=== PATIENT | female | born 1960 | race Asian ===

== ENCOUNTER 2021-01-23 10:18 | Outpatient (CLI) | payer OTHER ==
--- NOTE | 2021-01-23 13:36 | Cat Scan Report ---
CTA NECK WITH CONTRAST 01/23/2021 INDICATION / CLINICAL INFORMATION: MAIN. Bilateral carotid artery stenosis. COMPARISON: None. TECHNIQUE: Routine CTA of the neck is performed. 3-D/MIP reformats were postprocessed. Percentage st enosis is determined by direct quantitative measurements of diseased internal carotid artery diameter compared with normal distal internal carotid artery reference segments or by criteria similar to EUGENIA CET where applicable. All CT scans at this location are performed using CT dose reduction for ALARA b y means of automated exposure control. CONTRAST: 100 ml of Omnipaque 350 FINDINGS: Carotid bifurcations: On the right, some atherosclerotic plaque is present associated with mild steno sis. On the left, atherosclerotic plaque is present associated with prominent focal stenosis in the r madeline of 70-80% at the bifurcation. Carotid arteries: No significant abnormality. Cervical vertebral arteries: No significant abnormality. Aortic arch: No significant abnormality. None. IMPRESSION: High-grade stenosis at the origin of the left internal carotid artery. Signer Name: Lion Espinosa MD Signed: 01/23/2021 1:25 PM Workstation Name: [email or web address]
== END 2021-01-23 10:19 | disposition home or self-care (01) ==
LOC: CT 10:18
PROVIDERS: ATTEND Surgery Vascular Surgery
DX: I65.22 Occlusion and stenosis of left carotid artery (principal)
CPT/HCPCS: 36415; 70498; 82565; 84520; Q9967

== ENCOUNTER 2021-02-20 06:22 | Inpatient (IN) | payer OTHER ==
[~2021-02-20 06:22] MED LIST: ACETAMINOPHEN 500 MG TAB PO SCH; LACTATED RINGERS 1,000 ML IV SCH; MIDAZOLAM 2 MG/2 ML INJ IV NR; ceFAZolin/Water 2 GM/20 ML 2 GM/20 ML SYRINGE IV NR
[2021-02-20] MEDS ORDERED: BACTERIOSTATIC SODIUM CHLORIDE 0.9% 30 ML VIAL INFILTRATI ONE (06:35)
[2021-02-20 07:21] LABS: Calcium 9.7 mg/dL (8.4-10.2)
[2021-02-20] MEDS ORDERED: ONDANSETRON 4 MG/2 ML INJ IV PRN (09:01)
--- NOTE | 2021-02-20 09:01 | Anesthesia Day of Surgery ---
Anesthesia Day of Surgery - Day of Surgery Patient Examined: Yes Patient H&P Reviewed: Yes Patient is NPO: Yes Beta Blockers: Yes Cardiac Clearance: Yes
--- NOTE | 2021-02-20 09:01 | Event Note ---
Date: 02/20/21 (Anesthesia Preop Consult) Patient w/ PMH CAD s/p CABG 2011 and PCI 2013, HTN , NIDDM presenting for L CEA. Surgery previously scheduled for 1 wk ago but wass rescheduled for today. Previously evaluated in preassessment; no change in health since that evaluation. Hyperkalemia noted on PAT labs, which is improved today. ASA 3. Plan GETA. Pre-induction arterial line placed in preop holding area. Plan ICU admission postop. See anesthesia consult note for additional details.
[2021-02-20] MEDS ORDERED: propofoL 200 MG/20 ML VIAL IV ONE (09:25)
[2021-02-20] MEDS ORDERED: ROCURONIUM 50 MG/5 ML INJ IV ONE ×2 (09:25→10:59)
[2021-02-20] MEDS ORDERED: LIDOCAINE MPF (2%) 20 MG/1 ML VIAL 5 ML ONE (09:25)
[2021-02-20] MEDS ORDERED: HYDROmorphone 1 MG/1 ML INJ ONE (09:25)
[2021-02-20] MEDS ORDERED: HEPARIN 10,000 UNITS/10 ML VIAL ONE (09:39)
[2021-02-20] MEDS ORDERED: rifAMPin 600 MG VIAL ONE (09:39)
[2021-02-20] MEDS ORDERED: SODIUM CHLORIDE 0.9% 50 ML ONE (09:40)
[2021-02-20] MEDS ORDERED: GELATIN SPONGE SIZE 100 TP ONE ×2 (09:40→12:33)
[2021-02-20] MEDS ORDERED: THROMBIN (RECOMBINANT) 5,000 UNIT VIAL TP ONE ×2 (09:40→12:33)
[2021-02-20] MEDS ORDERED: SODIUM CHLORIDE 0.9% 500 ML 500 ML ONE (09:40)
[2021-02-20] MEDS ORDERED: LIDOCAINE-MPF (1%) 10 MG/1 ML VIAL 5 ML ONE (09:41)
[2021-02-20] MEDS ORDERED: BUPIVACAINE/PF (0.5%) 5 MG/1 ML 10 ML VIAL INFILTRATI ONE ×3 (09:41→11:08)
[2021-02-20] MEDS ORDERED: PHENYLEPHRINE/NS 1,000 MCG/10 ML SYRINGE (OR USE) IV ONE ×2 (10:49→12:56)
[2021-02-20] MEDS ORDERED: SODIUM CHLORIDE 0.9% 500 ML IVPB IRRIGATION ONE (11:09)
[2021-02-20] MEDS ORDERED: HEPARIN 10,000 UNITS/10 ML VIAL IR ONE (11:09)
[2021-02-20] MEDS ORDERED: SODIUM CHLORIDE 0.9% IRR 1,500 ML BOTTLE IR ONE (11:10)
[2021-02-20] MEDS ORDERED: rifAMPin 600 MG VIAL IV ONE (11:47)
[2021-02-20] MEDS ORDERED: SODIUM CHLORIDE 0.9% 50 ML IVPB IV ONE (11:48)
[2021-02-20] MEDS ORDERED: GLYCOPYRROLATE 0.4 MG/2 ML INJ ONE (12:46)
[2021-02-20] MEDS ORDERED: NEOSTIGMINE 10MG/10 ML INJ MDV ONE (12:46)
[2021-02-20] MEDS ORDERED: SODIUM CHLORIDE 0.9% 1000 ML 1,000 ML ONE (12:57)
[2021-02-20] MEDS ORDERED: ONDANSETRON 4 MG/2 ML INJ ONE (13:17)
--- NOTE | 2021-02-20 13:18 | Operative Report ---
Operative Report Operative Report: Date of procedure: 02/20/2021 Pre-operative diagnosis: Left Carotid Artery Stenosis Post-operative diagnosis: Left Carotid Artery Stenosis Procedure(s): 1. Left Carotid Endarterectomy With Patch Angioplasty 2. Intraoperative Completion Duplex Surgeon: Alvaro Santos MD Children Counselor: None Anesthesia: General Endotracheal Anesthesia EBL: 75 mL Findings: Multiphasic waveforms with peak systolic velocity of 60 cm/s without evidence of intimal flaps at the completion of the case. Specimen: Left Carotid Plaque Counts: Correct Complications: None Condition: Stable Indication: The patient is a 60-year-old female who was found to have significant carotid artery stenosis on a carotid duplex at an outside facility. She had a CTA of her neck that confirmed approximately 85 to 90% stenosis of her left internal carotid artery. She had a work-up that demonstrated she was an adequate candidate for a carotid endarterectomy. She was given the risk, benefits, and alternative procedures and consented to the procedure. Description of Procedure: The patient was brought to the operating room and laid in supine position. After general endotracheal anesthesia was achieved the patient was placed in beachchair position with her head elevated and turned slightly to the right. Th e patient's neck and chest were prepped and draped in normal fashion. An oblique incision was then created along the anterior border of the sternocleidomastoid. The incision was then carried down to the facial vein using sharp dissection. The facial vein was then dissected out circumferentially, suture ligated and divided. The dissection was then carried down to the common carotid using sharp dissection. The common carotid artery was dissected out circumferentially taking care to avoid the vagus nerve which was identified and avoided. The artery was then controlled with a large vessel loop. The dissection was carried up along the external carotid and the superficial thyroid artery was identified dissected out circumferentially and controlled with a 2-0 silk. The external carotid was dissected out and controlled a small vessel loop. I then dissected out the internal carotid artery well above the plaque which was identified by a change in hue of the artery from yellow to blue and palpation of the artery over a right angle. I controlled the internal carotid artery with a small vessel and at this point the patient was systemically heparinized with heparin IV. Once the heparin had circulated for 3 minute I clamped the internal carotid artery followed by the common carotid and then the external Carotid artery. I created an arteriotomy extending from the common carotid into the internal carotid, well above the plaque, using an 11 blade and Mayo scissors. I then flashed the internal carotid artery to check for adequate backbleeding. Once ensure there was adequate backbleeding reclamped the artery and used a Carmel blade to dissect the plaque away from the artery. I used a right angle to continue the dissection of this plane from lateral to medial and then divided the plaque using Mayo scissors. I then trimmed the plaque proximally using Mayo and then teased the plaque away from the distal endpoint insuring that there were no areas of dissection or intimal flaps. These plaque forceps to remove all loose debris and then flushed the artery with heparinized saline. I then closed the artery using the Dacron patch and two 6-0 Prolenes in running fashion. Prior to completing the closure I flushed all arteries to remove all loose debris and then flushed the artery with heparinized saline. I then completed the closure in an flashed the internal carotid, reclamped and then removed the clamp from the common carotid followed by the external carotid and allowed any loose debris to flush into the external carotid. I then removed the clamp from the internal carotid artery. Hemostasis was achieved with repair sutures with 6-0 Prolene in interrupted fashion and a combination of direct pressure with Quick Clot. Once hemostasis was achieved I performed an intraoperative duplex that demonstrated no evidence of dissection and normalization of internal carotid velocity. I then anesthetized the wound with 0.5% Marcaine and closed in 2 layers using a 3- 0 Vicryl in running in the deep dermal layer and a 4-0 Monocryl in running in the subcuticular layer and dressed it with the Dermabond. The patient tolerated the procedure well all sponge needle and instrument counts were correct the patient was taken to the recovery area in stable condition.
[2021-02-20] MEDS: HYDROmorphone 1 MG/1 ML INJ IV PRN ×2 (13:45→13:55)
[2021-02-20] MEDS ORDERED: DOPamine/D5W 800 MG/250 ML 800 MG/250 ML BAG IV SCH (14:00)
[2021-02-20] MEDS ORDERED: NITROPRUSSIDE 50 MG in DEXTROSE 5% IN WATER 248 ML IV SCH (14:00)
--- NOTE | 2021-02-20 14:10 | Vascular Lab Report ---
VL carotid duplex LT INDICATION / CLINICAL INFORMATION: LT.CAROTID STENOSIS TECHNIQUE: 13 intraoperative sonographic images were obtained during endarterectomy FINDINGS: Intraoperative sonographic images to evaluate for residual stenosis after left carotid nephrectomy. N o residual stenosis is visualized. Peak systolic velocity is 65 cm/s which is within normal range. See operative/procedure note by performing physician. Signer Name: Jb Arizmendi MD Signed: 02/20/2021 2:05 PM Workstation Name: [email or web address]
[2021-02-20] MEDS: HYDROcodone/ACETAMINOPHEN 5-325 MG TAB PO PRN ×2 (16:27→22:06)
--- NOTE | 2021-02-20 16:37 | Post Anesthesia Evaluation ---
- Post Anesthesia Evaluation Patient Participated: Yes Airway Patent: Yes Stable Respiratory Function: Yes Nausea/Vomiting: No Temp > 96.8F: Yes Pain Manageable: Yes Adequeate Hydration: Yes Anesthesia Complications: No Other Comments: No neuro deficits. OK for transfer to ICU pending bed availability.
[2021-02-20] MEDS: INSULIN LISPRO 100 UNIT/ML SUB-Q SCH ×2 (16:40→22:08)
[2021-02-20] MEDS: metFORMIN 500 MG TAB PO SCH (17:08)
[2021-02-20] MEDS ORDERED: ONDANSETRON 4 MG/2 ML INJ IV ONE ×2 (17:31→18:31)
[2021-02-20] MEDS ORDERED: ceFAZolin/NS 1 GM/50 ML 1 GM/50 ML BAG IV SCH (18:30)
[2021-02-20] MEDS ORDERED: NON-FORMULARY EACH (Metformin Hcl [Metformin] 1,000 MG Tablet) PO SCH (22:00)
[2021-02-20] MEDS: METOPROLOL TARTRATE 50 MG TAB PO SCH (22:06)
[2021-02-20] MEDS: DOCUSATE SODIUM 100 MG CAP PO SCH (22:06)
[2021-02-20] MEDS: PRAVASTATIN 40 MG TAB PO SCH (22:06)
[2021-02-20] MEDS: SODIUM CHLORIDE 0.9% 1000 ML 1,000 ML IV SCH (22:08)
[2021-02-21 05:21] LABS: Basophils # (Auto) 0.2 K/mm3 (0.0-0.1); Basophils % (Auto) 1.1 % (0.0-1.8); Eosinophils % (Auto) 0.2 % (0.0-4.3); Hematocrit 29.8 % (30.3-42.9); Hemoglobin 9.7 gm/dl (10.1-14.3); Lymphocytes # (Auto) 2.4 K/mm3 (1.2-5.4); Lymphocytes % (Auto) 16.2 % (13.4-35.0); Mean Corpuscular HGB Conc 33 % (30-34); Mean Corpuscular Volume 85 fl (79-97); Monocytes # (Auto) 0.9 K/mm3 (0.0-0.8); Monocytes % (Auto) 6.1 % (0.0-7.3); Platelet Count 364 K/mm3 (140-440); Red Blood Count 3.52 M/mm3 (3.65-5.03)
[2021-02-21] MEDS: SODIUM CHLORIDE 0.9% 1000 ML 1,000 ML IV SCH (08:53)
[2021-02-21] MEDS: INSULIN LISPRO 100 UNIT/ML SUB-Q SCH ×4 (08:58→22:05)
[2021-02-21] MEDS: LISINOPRIL 20 MG TAB PO SCH (09:01)
[2021-02-21] MEDS: DOCUSATE SODIUM 100 MG CAP PO SCH ×2 (09:01→22:05)
[2021-02-21] MEDS: HYDROcodone/ACETAMINOPHEN 5-325 MG TAB PO PRN ×2 (09:01→18:13)
[2021-02-21] MEDS: allopurinoL 100 MG TAB PO SCH (09:01)
[2021-02-21] MEDS: ASPIRIN 81 MG TAB CHEW PO SCH (09:01)
[2021-02-21] MEDS: metFORMIN 500 MG TAB PO SCH ×2 (09:02→18:05)
[2021-02-21] MEDS: CLOPIDOGREL 75 MG TAB PO SCH (09:02)
[2021-02-21] MEDS: METOPROLOL TARTRATE 50 MG TAB PO SCH ×2 (09:02→22:05)
[2021-02-21] MEDS: amLODIPine 10 MG TAB PO SCH (09:04)
[2021-02-21] MEDS ORDERED: NON-FORMULARY EACH (Pravastatin Sodium [Pravastatin] 10 MG Tablet) PO SCH (10:00)
[2021-02-21] MEDS ORDERED: CLOPIDOGREL 75 MG TAB PO SCH (10:00)
[2021-02-21] MEDS: TRIAMTER/HCTZ 37.5-25 MG TAB PO SCH (10:26)
[2021-02-21] MEDS: EZETIMIBE 10 MG TAB PO SCH (10:26)
--- NOTE | 2021-02-21 11:25 | Progress Note ---
Assessment and Plan Patient will need to get out of bed and ambulate with assistance with either physical therapy or nursing assistance. She will need to be seated for her meals. Okay to transfer the patient to the floor. Would anticipate discharge tomorrow. Subjective Date of service: 02/21/21 Principal diagnosis: Left carotid stenosis Interval history: Patient is postop day 1 status post left carotid endarterectomy. She is doing well following her surgery. No significant bruising at the incision site. The patient is breathing easily. She describes some mild dysphagia with large chunks of meat or bread. Has not yet been out of bed without assistance. Objective - Constitutional Vitals: Vital Signs - 12hr 02/21/21 02/21/21 02/21/21 00:00 01:00 02:00 Temperature 99.3 F Pulse Rate 105 H 101 H 94 H Respiratory 20 17 19 Rate Blood Pressure 168/72 160/62 168/70 O2 Sat by Pulse 94 94 94 Oximetry 02/21/21 02/21/21 02/21/21 03:00 03:14 04:00 Temperature 98.6 F Pulse Rate 84 88 Respiratory 17 17 Rate Blood Pressure 156/60 171/68 O2 Sat by Pulse 93 93 Oximetry 02/21/21 02/21/21 02/21/21 04:17 05:00 06:00 Temperature Pulse Rate 88 84 Respiratory 19 16 Rate Blood Pressure 164/63 161/61 O2 Sat by Pulse 95 93 93 Oximetry 02/21/21 02/21/21 02/21/21 07:00 07:39 08:00 Temperature 98.7 F Pulse Rate 86 92 H Respiratory 17 17 Rate Blood Pressure 162/60 161/61 O2 Sat by Pulse 93 96 Oximetry 02/21/21 02/21/21 02/21/21 08:17 09:00 09:01 Temperature Pulse Rate 88 88 Respiratory 19 Rate Blood Pressure 179/68 179/68 O2 Sat by Pulse 97 94 Oximetry 02/21/21 02/21/21 02/21/21 09:02 09:04 10:00 Temperature Pulse Rate 88 88 84 Respiratory 15 Rate Blood Pressure 179/68 179/68 145/51 O2 Sat by Pulse Oximetry 02/21/21 11:00 Temperature Pulse Rate 79 Respiratory 13 Rate Blood Pressure 144/57 O2 Sat by Pulse 92 Oximetry General appearance: Present: no acute distress - EENT Eyes: EOM intact ENT: hearing intact - Neck Neck: supple - Respiratory Respiratory effort: normal - Cardiovascular Rhythm: regular Extremity abnormal: edema - Gastrointestinal General gastrointestinal: Present: deferred Rectal Exam: deferred - Genitourinary Female genitourinary: deferred - Neurologic Neurologic: no focal deficits, moves all extremities - Psychiatric Psychiatric: appropriate mood/affect, cooperative - Labs CBC & Chem 7: 02/21/21 04:57 02/20/21 06:54 Labs: Abnormal lab results 02/20/21 02/20/21 02/20/21 Range/Units 13:09 16:24 21:17 WBC (4.5-11.0) K/mm3 RBC (3.65-5.03) M/mm3 Hgb (10.1-14.3) gm/dl Hct (30.3-42.9) % Steele # (Auto) (0.0-0.8) K/mm3 Baso # (Auto) (0.0-0.1) K/mm3 Seg Neutrophils % (40.0-70.0) % Seg Neutrophils # (1.8-7.7) K/mm3 POC Glucose 191 H 173 H 226 H (70-105) mg/dL 02/21/21 02/21/21 Range/Units 04:57 07:59 WBC 14.9 H (4.5-11.0) K/mm3 RBC 3.52 L (3.65-5.03) M/mm3 Hgb 9.7 L (10.1-14.3) gm/dl Hct 29.8 L (30.3-42.9) % Steele # (Auto) 0.9 H (0.0-0.8) K/mm3 Baso # (Auto) 0.2 H (0.0-0.1) K/mm3 Seg Neutrophils % 76.4 H (40.0-70.0) % Seg Neutrophils # 11.4 H (1.8-7.7) K/mm3 POC Glucose 165 H (70-105) mg/dL Medications & Allergies - Medications Allergies/Adverse Reactions: Allergies adhesive Allergy (Verified 02/05/21 09:50) Rash latex Allergy (Verified 02/05/21 09:50) Rash Home Medications: Home Medications Medication Instructions Recorded Confirmed Last Taken Type Metoprolol [Lopressor] 100 mg PO BID 03/08/14 02/18/21 02/20/21 05:10 History Pravastatin Sodium [Pravastatin] 40 mg PO DAILY 03/08/14 02/18/21 02/19/21 Hi story lisinopriL [Zestril] 40 mg PO QDAY 03/08/14 02/18/21 02/19/21 History Aspirin [Aspirin BABY CHEW TAB] 81 mg PO QDAY 01/24/15 02/20/21 02/06/21 History Clopidogrel [Plavix] 75 mg PO QDAY 01/24/15 02/18/21 02/19/21 History Ezetimibe [Zetia] 10 mg PO QDAY 02/05/21 02/18/21 02/19/21 History Metformin HCl [metFORMIN] 1,000 mg PO BID 02/05/21 02/20/21 02/19/21 History Triamterene/Hydrochlorothiazid 75 mg PO DAILY 02/05/21 02/18/21 02/19/21 History [Triamterene-Hctz 75-50 mg Tab] allopurinoL [Zyloprim] 100 mg PO QDAY 02/05/21 02/18/21 02/19/21 History amLODIPine [Norvasc] 10 mg PO DAILY 02/05/21 02/18/21 02/20/21 05:10 History Active Medications: Generic Name Dose Route Start Last Admin Trade Name Freq PRN Reason Stop Dose Admin Hydrocodone Bitart/Acetaminophen 1 each 02/20/21 14:30 02/21/21 09:01 Hydrocodone/Acetaminophen 5-325 Mg Tab PO 1 each Q6H PRN Administration Pain, Moderate (4-6) Allopurinol 100 mg 02/21/21 10:00 02/21/21 09:01 Allopurinol 100 Mg Tab PO 100 mg QDAY ALEJANDRO Administration Amlodipine Besylate 10 mg 02/21/21 10:00 02/21/21 09:04 Amlodipine 10 Mg Tab PO 10 mg DAILY ALEJANDRO Administration Aspirin 81 mg 02/21/21 10:00 02/21/21 09:01 Aspirin 81 Mg Tab Chew PO 81 mg QDAY ALEJANDRO Administration Clopidogrel Bisulfate 75 mg 02/21/21 10:00 02/21/21 09:02 Clopidogrel 75 Mg Tab PO 75 mg QDAY ALEJANDRO Administration Docusate Sodium 100 mg 02/20/21 22:00 02/21/21 09:01 Docusate Sodium 100 Mg Cap PO 100 mg BID ALEJANDRO Administration Ezetimibe 10 mg 02/21/21 10:00 02/21/21 10:26 Ezetimibe 10 Mg Tab PO 10 mg QDAY ALEJANDRO Administration Sodium Chloride 1,000 mls @ 100 mls/hr 02/20/21 14:00 02/21/21 08:53 Nacl 0.9% 1000 Ml IV 100 mls/hr DIRECT ALEJANDRO Administration Dopamine HCl/Dextrose 800 mg in 250 mls @ 3.402 mls/hr 02/20/21 14:00 Intropin Drip 800 Mg/D5w 250 Ml IV TITR ALEJANDRO Protocol 2 MCG/KG/MIN Sodium Nitroprusside 50 mg/ 250 mls @ 6.804 mls/hr 02/20/21 14:00 Dextrose IV TITR ALEJANDRO Protocol 0.25 MCG/KG/MIN Insulin Human Lispro 0 unit 02/20/21 16:30 02/21/21 08:58 Insulin Lispro 100 Unit/Ml SUB-Q 2 unit ACHS ALEJANDRO Administration Protocol Lisinopril 40 mg 02/21/21 10:00 02/21/21 09:01 Lisinopril 20 Mg Tab PO 40 mg QDAY ALEJANDRO Administration Metformin HCl 1,000 mg 02/20/21 17:00 02/21/21 09:02 Metformin 500 Mg Tab PO 1,000 mg BIDDIAB ALEJANDRO Administration Metoprolol Tartrate 100 mg 02/20/21 22:00 02/21/21 09:02 Metoprolol Tartrate 50 Mg Tab PO 100 mg BID ALEJANDRO Administration Pravastatin Sodium 40 mg 02/20/21 22:00 02/20/21 22:06 Pravastatin 40 Mg Tab PO 40 mg QHS ALEJANDRO Administration Triamterene/Hydrochlorothiazide 2 each 02/21/21 10:00 02/21/21 10:26 Triamter/Hctz 37.5-25 Mg Tab PO 2 each QAM ALEJANDRO Administration
--- NOTE | 2021-02-21 13:28 | Post Anesthesia Evaluation ---
- Post Anesthesia Evaluation Patient Participated: Yes Airway Patent: Yes Stable Respiratory Function: Yes Nausea/Vomiting: No (had PONV lasting 4-5hrs postop, none since) Temp > 96.8F: No Pain Manageable: Yes Adequeate Hydration: Yes Anesthesia Complications: No Block Receding Appropriately: Not Applicable Patient on Ventilator: No
[2021-02-21] MEDS: PRAVASTATIN 40 MG TAB PO SCH (22:05)
[2021-02-21] MEDS ORDERED: ACETAMINOPHEN 325 MG TAB PO PRN (22:29)
[2021-02-22] MEDS: HYDROcodone/ACETAMINOPHEN 5-325 MG TAB PO PRN ×2 (01:07→06:24)
[2021-02-22] MEDS: ASPIRIN 81 MG TAB CHEW PO SCH (09:13)
[2021-02-22] MEDS: DOCUSATE SODIUM 100 MG CAP PO SCH (09:13)
[2021-02-22] MEDS: CLOPIDOGREL 75 MG TAB PO SCH (09:13)
[2021-02-22] MEDS: metFORMIN 500 MG TAB PO SCH (09:13)
[2021-02-22] MEDS: EZETIMIBE 10 MG TAB PO SCH (09:13)
[2021-02-22] MEDS: allopurinoL 100 MG TAB PO SCH (09:13)
[2021-02-22] MEDS: INSULIN LISPRO 100 UNIT/ML SUB-Q SCH ×2 (09:13→12:16)
[2021-02-22] MEDS: amLODIPine 10 MG TAB PO SCH (09:15)
[2021-02-22] MEDS: METOPROLOL TARTRATE 50 MG TAB PO SCH (09:15)
[2021-02-22] MEDS: LISINOPRIL 20 MG TAB PO SCH (09:15)
[2021-02-22] MEDS: TRIAMTER/HCTZ 37.5-25 MG TAB PO SCH (09:39)
--- NOTE | 2021-02-22 11:10 | Short Stay Summary ---
Short Stay Documentation Date of service: 02/22/21 Narrative H&P: See H&P - History H&P: obtained from office - Allergies and Medications Current Medications: Allergies adhesive Allergy (Verified 02/05/21 09:50) Rash latex Allergy (Verified 02/05/21 09:50) Rash Home Medications Medication Instructions Recorded Confirmed Last Taken Type Metoprolol [Lopressor] 100 mg PO BID 03/08/14 02/18/21 02/20/21 05:10 History Pravastatin Sodium [Pravastatin] 40 mg PO DAILY 03/08/14 02/18/21 02/19/21 History lisinopriL [Zestril] 40 mg PO QDAY 03/08/14 02/18/21 02/19/21 History Aspirin [Aspirin BABY CHEW TAB] 81 mg PO QDAY 01/24/15 02/20/21 02/06/21 History Clopidogrel [Plavix] 75 mg PO QDAY 01/24/15 02/18/21 02/19/21 History Ezetimibe [Zetia] 10 mg PO QDAY 02/05/21 02/18/21 02/19/21 History Metformin HCl [metFORMIN] 1,000 mg PO BID 02/05/21 02/20/21 02/19/21 History Triamterene/Hydrochlorothiazid 75 mg PO DAILY 02/05/21 02/18/21 02/19/21 History [Triamterene-Hctz 75-50 mg Tab] allopurinoL [Zyloprim] 100 mg PO QDAY 02/05/21 02/18/21 02/19/21 History amLODIPine [Norvasc] 10 mg PO DAILY 02/05/21 02/18/21 02/20/21 05:10 History Active Medications Acetaminophen (Acetaminophen 325 Mg Tab) 650 mg PO Q4H PRN PRN Reason: Pain, Mild (1-3) Last Admin: 02/21/21 22:39 Dose: 650 mg Documented by: Hydrocodone Bitart/Acetaminophen (Hydrocodone/Acetaminophen 5-325 Mg Tab) 1 each PO Q6H PRN PRN Reason: Pain, Moderate (4-6) Last Admin: 02/22/21 06:24 Dose: 1 each Documented by: Allopurinol (Allopurinol 100 Mg Tab) 100 mg PO QDAY ALEJANDRO Last Admin: 02/22/21 09:13 Dose: 100 mg Documented by: Amlodipine Besylate (Amlodipine 10 Mg Tab) 10 mg PO DAILY [facility] Last Admin: 02/22/21 09:15 Dose: 10 mg Documented by: Aspirin (Aspirin 81 Mg Tab Chew) 81 mg PO QDAY [facility] Last Admin: 02/22/21 09:13 Dose: 81 mg Documented by: Clopidogrel Bisulfate (Clopidogrel 75 Mg Tab) 75 mg PO QDAY [facility] Last Admin: 02/22/21 09:13 Dose: 75 mg Documented by: Docusate Sodium (Docusate Sodium 100 Mg Cap) 100 mg PO BID [facility] Last Admin: 02/22/21 09:13 Dose: 100 mg Documented by: Ezetimibe (Ezetimibe 10 Mg Tab) 10 mg PO QDAY [facility] Last Admin: 02/22/21 09:13 Dose: 10 mg Documented by: Sodium Chloride (Nacl 0.9% 1000 Ml) 1,000 mls @ 100 mls/hr IV DIRECT [facility] Last Admin: 02/21/21 08:53 Dose: 100 mls/hr Documented by: Insulin Human Lispro (Insulin Lispro 100 Unit/Ml) 0 unit SUB-Q ACHS [facility]; Protocol Last Admin: 02/22/21 09:13 Dose: 3 unit Documented by: Lisinopril (Lisinopril 20 Mg Tab) 40 mg PO QDAY [facility] Last Admin: 02/22/21 09:15 Dose: 40 mg Documented by: Metformin HCl (Metformin 500 Mg Tab) 1,000 mg PO BIDDIAB [facility] Last Admin: 02/22/21 09:13 Dose: 1,000 mg Documented by: Metoprolol Tartrate (Metoprolol Tartrate 50 Mg Tab) 100 mg PO BID [facility] Last Admin: 02/22/21 09:15 Dose: 100 mg Documented by: Pravastatin Sodium (Pravastatin 40 Mg Tab) 40 mg PO QHS [facility] Last Admin: 02/21/21 22:05 Dose: 40 mg Documented by: Triamterene/Hydrochlorothiazide (Triamter/Hctz 37.5-25 Mg Tab) 2 each PO QAM [facility] Last Admin: 02/22/21 09:39 Dose: 2 each Documented by: - Physical exam Extremities: no ischemia, pulses intact - Hospital course Hospital course: Date of procedure: 02/20/2021 Pre-operative diagnosis: Left Carotid Artery Stenosis Post-operative diagnosis: Left Carotid Artery Stenosis Procedure(s): 1. Left Carotid Endarterectomy With Patch Angioplasty 2. Intraoperative Completion Duplex Surgeon: Alvaro Santos MD Machine Driller: None Anesthesia: General Endotracheal Anesthesia EBL: 75 mL Findings: Multiphasic waveforms with peak systolic velocity of 60 cm/s without evidence of intimal flaps at the completion of the case. Specimen: Left Carotid Plaque Counts: Correct Complications: None Condition: Stable Indication: The patient is a 60-year-old female who was found to have significant carotid artery stenosis on a carotid duplex at an outside facility. She had a CTA of her neck that confirmed approximately 85 to 90% stenosis of her left internal carotid artery. She had a work-up that demonstrated she was an adequate candidate for a carotid endarterectomy. She was given the risk, benefits, and alternative procedures and consented to the procedure. Description of Procedure: The patient was brought to the operating room and laid in supine position. After general endotracheal anesthesia was achieved the patient was placed in beachchair position with her head elevated and turned slightly to the right. The patient's neck and chest were prepped and draped in normal fashion. An oblique incision was then created along the anterior border of the sternocleidomastoid. The incision was then carried down to the facial vein using sharp dissection. The facial vein was then dissected out circumferentially, suture ligated and divided. The dissection was then carried down to the common carotid using sharp dissection. The common carotid artery was dissected out circumferentially taking care to avoid the vagus nerve which was identified and avoided. The artery was then controlled with a large vessel loop. The dissection was carried up along the external carotid and the superficial thyroid artery was identified dissected out circumferentially and controlled with a 2-0 silk. The external carotid was dissected out and controlled a small vessel loop. I then dissected out the internal carotid artery well above the plaque which was identified by a change in hue of the ani ry from yellow to blue and palpation of the artery over a right angle. I controlled the internal carotid artery with a small vessel and at this point the patient was systemically heparinized with heparin IV. Once the heparin had circulated for 3 minute I clamped the internal carotid artery followed by the common carotid and then the external Carotid artery. I created an arteriotomy extending from the common carotid into the internal carotid, well above the plaque, using an 11 blade and Mayo scissors. I then flashed the internal carotid artery to check for adequate backbleeding. Once ensure there was adequate backbleeding reclamped the artery and used a [place] blade to dissect the plaque away from the artery. I used a right angle to continue the dissection of this plane from lateral to medial and then divided the plaque using Mayo scissors. I then trimmed the plaque proximally using Mayo and then teased the plaque away from the distal endpoint insuring that there were no areas of dissection or intimal flaps. These plaque forceps to remove all loose debris and then flushed the artery with heparinized saline. I then closed the artery using the Dacron patch and two 6-0 Prolenes in running fashion. Prior to completing the closure I flushed all arteries to remove all loose debris and then flushed the artery with heparinized saline. I then completed the closure in an flashed the internal carotid, reclamped and then removed the clamp from the common carotid followed by the external carotid and allowed any loose debris to flush into the external carotid. I then removed the clamp from the internal carotid artery. Hemostasis was achieved with repair sutures with 6-0 Prolene in interrupted fashion and a combination of direct pressure with Quick Clot. Once hemostasis was achieved I performed an intraoperative duplex that demonstrated no evidence of dissection and normalization of internal carotid velocity. I then anesthetized the wound with 0.5% Marcaine and closed in 2 layers using a 3-0 Vicryl in running in the deep dermal layer and a 4-0 Monocryl in running in the subcuticular layer and dressed it with the Dermabond. The patient tolerated the procedure well all sponge needle and instrument counts were correct the patient was taken to the recovery area in stable condition. - Disposition Condition at discharge: Stable Disposition: DC-01 TO HOME OR SELFCARE Short Stay Discharge Plan Activity: other (No driving for 2 weeks.) Wound: open to air, keep clean and dry, other (Okay to shower and wash the wound with soap and water but do not soak in water for 2 weeks.) Follow up with: ALVARO SANTOS MD [Staff Physician] - 14 Days Prescriptions: HYDROcodone/APAP 5-325 [[place] 5-325 mg TAB] 1 each PO Q6H PRN #40 tablet PRN Reason: Pain, Moderate (4-6)
--- NOTE | 2021-02-22 11:10 | Progress Note ---
Assessment and Plan The patient is postoperative day #2 status post left carotid endarterectomy. She is clinically doing well and ready for discharge home. All discharge instructions have been given and the patient has expressed understanding. Subjective Date of service: 02/22/21 Principal diagnosis: Left carotid stenosis Interval history: The patient states she is eating much better today. She has been ambulating without difficulty and without assistance. Her left neck pain has improved. She has no complaints. Objective - Constitutional Vitals: Vital Signs - 12hr 02/22/21 02/22/21 02/22/21 01:07 04:28 06:24 Temperature 98.9 F Pulse Rate 79 Respiratory 18 18 18 Rate Blood Pressure 124/52 O2 Sat by Pulse 95 Oximetry 02/22/21 09:14 Temperature 98.5 F Pulse Rate 80 Respiratory 18 Rate Blood Pressure 154/57 O2 Sat by Pulse 95 Oximetry General appearance: Present: no acute distress - EENT ENT: other (Tongue is midline and smile is symmetric) - Neck Neck: supple, other (Left neck incision is clean, dry, and intact without hematoma) - Respiratory Respiratory effort: normal - Cardiovascular Rhythm: regular Extremities: no ischemia, pulses intact - Genitourinary Female genitourinary: deferred - Musculoskeletal Musculoskeletal: strength equal bilaterally - Neurologic Neurologic: moves all extremities - Labs CBC & Chem 7: 02/21/21 04:57 02/20/21 06:54 Labs: Abnormal lab results 02/21/21 02/21/21 02/21/21 Range/Units 07:59 11:39 15:46 POC Glucose 165 H 157 H 165 H (70-105) mg/dL 02/21/21 02/22/21 Range/Units 21:47 07:19 POC Glucose 141 H 249 H (70-105) mg/dL Medications & Allergies - Medications Allergies/Adverse Reactions: Allergies adhesive Allergy (Verified 02/05/21 09:50) Rash latex Allergy (Verified 02/05/21 09:50) Rash Home Medications: Home Medications Medication Instructions Recorded Confirmed Last Taken Type Metoprolol [Lopressor] 100 mg PO BID 03/08/14 02/18/21 02/20/21 05:10 History Pravastatin Sodium [Pravastatin] 40 mg PO DAILY 03/08/14 02/18/21 02/19/21 His tory lisinopriL [Zestril] 40 mg PO QDAY 03/08/14 02/18/21 02/19/21 History Aspirin [Aspirin BABY CHEW TAB] 81 mg PO QDAY 01/24/15 02/20/21 02/06/21 History Clopidogrel [Plavix] 75 mg PO QDAY 01/24/15 02/18/21 02/19/21 History Ezetimibe [Zetia] 10 mg PO QDAY 02/05/21 02/18/21 02/19/21 History Metformin HCl [metFORMIN] 1,000 mg PO BID 02/05/21 02/20/21 02/19/21 History Triamterene/Hydrochlorothiazid 75 mg PO DAILY 02/05/21 02/18/21 02/19/21 History [Triamterene-Hctz 75-50 mg Tab] allopurinoL [Zyloprim] 100 mg PO QDAY 02/05/21 02/18/21 02/19/21 History amLODIPine [Norvasc] 10 mg PO DAILY 02/05/21 02/18/21 02/20/21 05:10 History Active Medications: Generic Name Dose Route Start Last Admin Trade Name Freq PRN Reason Stop Dose Admin Acetaminophen 650 mg 02/21/21 22:29 02/21/21 22:39 Acetaminophen 325 Mg Tab PO 650 mg Q4H PRN Administration Pain, Mild (1-3) Hydrocodone Bitart/Acetaminophen 1 each 02/20/21 14:30 02/22/21 06:24 Hydrocodone/Acetaminophen 5-325 Mg Tab PO 1 each Q6H PRN Administration Pain, Moderate (4-6) Allopurinol 100 mg 02/21/21 10:00 02/22/21 09:13 Allopurinol 100 Mg Tab PO 100 mg QDAY ALEJANDRO Administration Amlodipine Besylate 10 mg 02/21/21 10:00 02/22/21 09:15 Amlodipine 10 Mg Tab PO 10 mg DAILY ALEJANDRO Administration Aspirin 81 mg 02/21/21 10:00 02/22/21 09:13 Aspirin 81 Mg Tab Chew PO 81 mg QDAY ALEJANDRO Administration Clopidogrel Bisulfate 75 mg 02/21/21 10:00 02/22/21 09:13 Clopidogrel 75 Mg Tab PO 75 mg QDAY ALEJANDRO Administration Docusate Sodium 100 mg 02/20/21 22:00 02/22/21 09:13 Docusate Sodium 100 Mg Cap PO 100 mg BID ALEJANDRO Administration Ezetimibe 10 mg 02/21/21 10:00 02/22/21 09:13 Ezetimibe 10 Mg Tab PO 10 mg QDAY ALEJANDRO Administration Sodium Chloride 1,000 mls @ 100 mls/hr 02/20/21 14:00 02/21/21 08:53 Nacl 0.9% 1000 Ml IV 100 mls/hr DIRECT ALEJANDRO Administration Insulin Human Lispro 0 unit 02/20/21 16:30 02/22/21 09:13 Insulin Lispro 100 Unit/Ml SUB-Q 3 unit ACHS ALEJANDRO Administration Protocol Lisinopril 40 mg 02/21/21 10:00 02/22/21 09:15 Lisinopril 20 Mg Tab PO 40 mg QDAY ALEJANDRO Administration Metformin HCl 1,000 mg 02/20/21 17:00 02/22/21 09:13 Metformin 500 Mg Tab PO 1,000 mg BIDDIAB ALEJANDRO Administration Metoprolol Tartrate 100 mg 02/20/21 22:00 02/22/21 09:15 Metoprolol Tartrate 50 Mg Tab PO 100 mg BID ALEJANDRO Administration Pravastatin Sodium 40 mg 02/20/21 22:00 02/21/21 22:05 Pravastatin 40 Mg Tab PO 40 mg QHS ALEJANDRO Administration Triamterene/Hydrochlorothiazide 2 each 02/21/21 10:00 02/22/21 09:39 Triamter/Hctz 37.5-25 Mg Tab PO 2 each QAM ALEJANDRO Administration
[2021-02-22 14:04] VITALS: BP 146/66
== END 2021-02-22 14:00 | disposition home or self-care (01) | DRG 39 ==
LOC: 3A 06:22 → IMCU 14:48 → 3A 02-21 14:42 → UNDODISIN 02-21 20:14
PROVIDERS: ADMIT Surgery Vascular Surgery; ATTEND Surgery Vascular Surgery
PROC: 03CN0ZZ Extirpation of Matter from Left External Carotid Artery, Open Approach (ICD-10-PCS; principal; 2021-02-20)
PROC: 03CJ0ZZ Extirpation of Matter from Left Common Carotid Artery, Open Approach (ICD-10-PCS; 2021-02-20)
PROC: 03CL0ZZ Extirpation of Matter from Left Internal Carotid Artery, Open Approach (ICD-10-PCS; 2021-02-20)
PROC: 03UL0JZ Supplement Left Internal Carotid Artery with Synthetic Substitute, Open Approach (ICD-10-PCS; 2021-02-20)
DX: I65.22 Occlusion and stenosis of left carotid artery (principal); Z91.040 Latex allergy status; Z91.048 Other nonmedicinal substance allergy status
CPT/HCPCS: 36415; 36620; 80048; 82962; 85025; 86850; 86900; 86901; 88304; 88311; G0378; A4649; A9270-GY; C1768; J0690; J1170; J1644; J1815; J2250; J2370; J2405; J2704; J2710; J3490; J7030; J7040; J7120